=== PATIENT | male | born 1955 | race Caucasian/White ===

== ENCOUNTER 2016-09-13 14:44 | Emergency (ER) | payer MEDICARE, OTHER ==
[~2016-09-13] VITALS: Ht 167.6 cm; Wt 70.0 kg
[~2016-09-13 14:44] MED LIST: ASPI81CH PO; CALG500 PO; HYDR25TA5 PO; LISI-591 PO; LISI10TA3 PO; METF500 PO; METO50TA PO; OMEP20TA PO; PERI8.6T PO; POTA-245 PO; TAB-TAB PO; ULTR50TA5 PO; ZOCO40TA PO
[2016-09-13 14:45] VITALS: BP 114/56; PULSE 53; RESP 16; TEMP 98.1; O2SAT 98
[2016-09-13] MEDS ORDERED: TETANUS/DIPHTHERIA TOXOID ADULT 0.5 ML VIAL IM ONE (15:45)
--- NOTE | 2016-09-13 15:52 | PD ---
HPI Chief Complaint: Head Injury Time Seen by Provider: 15:40 Travel History International Travel<30 days: No Contact w/Intl Traveler<30days: No Traveled to known affect area: No History of Present Illness HPI 61-year-old male with history of autism and mental delay per chart review. He presents with a hand picker for evaluation of a mechanical fall. The patient currently is a resident at [facility]. Reportedly the patient was at [facility], a program for those with supplemental delay, today. He was sitting up from a chair when he caught his walker on something and fell forward, striking his face and head against a filing cabinet. There is no reported loss of consciousness. The patient is acting normally according to his hand picker. He is not complaining of pain anywhere but he does have hematoma and ecchymosis formation on the right side of his face and forehead. He also has an abrasion to the right knee. Last tetanus vaccination unknown. Per our chart review he is on aspirin. No other complaints. History is limited secondary to the patient's autism and inability to add much in terms of history. PFSH Past Medical History Arthritis: Yes Asthma: No Blood Disorders: Yes (this admission) Anxiety: No Depression: No Heart Rhythm Problems: No Cancer: No Cardiovascular Problems: No High Cholesterol: Yes Chemotherapy: No Chest Pain: No Congestive Heart Failure: No COPD: No Developmental Delay: Yes Diabetes: Yes Diminished Hearing: Yes Endocrine: No Genitourinary: Yes (incontience) Hypertension: Yes Immune Disorder: No Musculoskeletal: Yes Neurologic: Yes (autism,developmental) Psychiatric: No Reproductive: No Respiratory: No Immunizations Current: Yes Radiation Therapy: No Sleep Apnea: No Social History Alcohol Use: No Tobacco Use: No Substance Use: No Allergies-Medications (Allergen,Severity, Reaction): Coded Allergies: No Known Allergies (Verified , 09/13/16) Reported Meds & Prescriptions Reported Meds & Active Scripts Active Ultram (Tramadol HCl) 50 Mg Tab 50 Mg PO BID PRN Calcium Gluconate 500 Mg Tab 500 Mg PO DAILY 1 gram of salt is 93 mg elemental calcium. Aspirin 81 Mg Chew 81 Mg PO DAILY Multivitamin (Multivitamins) 1 Tab Tab 1 Tab PO DAILY Reported Zestril (Lisinopril) 20 Mg Tab 20 Mg PO DAILY Klor-Con M20 (Potassium Chloride Microencaps) 20 Meq Tab 40 Meq PO Q12HR Hydrochlorothiazide 25 Mg Tab 25 Mg PO DAILY Metoprolol Tartrate 50 Mg Tab 50 Mg PO Q12HR Zocor (Simvastatin) 40 Mg Tab 40 Mg PO HS Kami-Colace (Sennosides-Docusate Sodium) 8.6-50 Mg Tab 1 Tab PO BID Omeprazole 20 Mg Tab 20 Mg PO DAILY Lisinopril 10 Mg Tab 10 Mg PO DAILY Glucophage (Metformin HCl) 500 Mg Tab 500 Mg PO BIDPC With meals Review of Systems ROS Limitations: Poor Historian Physical Exam Exam Limitations: Poor Historian Narrative GENERAL: Well-developed well-nourished male in no acute distress who responds to commands normally. He is alert and oriented. He denies any pain. SKIN: Warm and dry. There is ecchymosis, superficial abrasions and hematoma formation over the right maxilla and right forehead. There is a small abrasion to the anterior knee. HEAD: Skin as noted above Normocephalic. EYES: Pupils equal and round. No scleral icterus. No injection or drainage. ENT: No nasal bleeding or discharge. Mucous membranes pink and moist. NECK: Trachea midline. No JVD. CARDIOVASCULAR: Regular rate and rhythm. No murmur appreciated. RESPIRATORY: No accessory muscle use. Clear to auscultation. Breath sounds equal bilaterally. GASTROINTESTINAL: Abdomen soft, non-tender, nondistended. Hepatic and splenic margins not palpable. MUSCULOSKELETAL: No obvious deformities. There is no tenderness to palpation along the cervical thoracic or lumbar midline spine. No tenderness to palpation to the hips, legs. The patient maintains full spontaneous range of motion of the neck, upper and lower extremities with no apparent discomfort. NEUROLOGICAL: Awake and alert. No obvious cranial nerve deficits. Motor grossly within normal limits. Data Data Last Documented VS Vital Signs Date Time Temp Pulse Resp B/P Pulse Ox O2 Delivery O2 Flow Rate FiO2 09/13/16 17:10 60 18 125/68 96 09/13/16 14:[address] Brain W/O Iv Contrast(Rout) (09/13/16 ) Ct Facial Bones W/O Iv Cont (09/13/16 ) Ice/Cold Pack (09/13/16 15:42) Tetanus/Diphtheria Tox Adult (Tetanus/Di (09/13/16 15:45) MDM Medical Decision Making Medical Screen Exam Complete: Yes Emergency Medical Condition: Yes Medical Record Reviewed: Yes Differential Diagnosis Hematoma, abrasion, contusion, fracture, intracranial hemorrhage Narrative Course 61-year-old male presents after mechanical fall with facial and forehead hematoma and abrasion as well as a small abrasion to the right knee. He appears well. He has no other apparent injuries or apparent discomfort. Tetanus status will be updated. He will be given an ice pack. CT of the brain and facial bones has been ordered. CT imaging is negative. The patient was reassured. He is stable for discharge in the care of his hand picker. Diagnosis Primary Impression: Facial hematoma Qualified Code: S00.83XA - Facial hematoma, initial encounter Additional Impression: Multiple abrasions Additional Instructions: Ice pack several times a day 10-15 minutes at a time. Keep the wounds clean with soap and water and apply antibiotic cream daily. Return for any emergent medical conditions Med/Other Pt SpecificInfo: No Change to Meds Disposition: 01 DISCHARGE HOME Condition: Stable Chris Cordova Sep 13, 2016 15:52
--- NOTE | 2016-09-13 16:58 | RADRPT ---
EXAM DATE/TIME: 09/13/2016 16:22 [facility] COMPARISON: CT BRAIN W/O CONTRAST, January 07, 2015, 2:47. INDICATIONS : Fell, contusion. RADIATION DOSE: 15.27 CTDIvol (mGy) MEDICAL HISTORY : Hypertension. SURGICAL HISTORY : None. ENCOUNTER: Initial ACUITY: 1 day PAIN SCALE: 5/10 LOCATION: cranial TECHNIQUE: Multiple contiguous axial images were obtained of the head. Using automated exposure control and adj ustment of the mA and/or kV according to patient size, radiation dose was kept as low as reasonably a chievable to obtain optimal diagnostic quality images. FINDINGS: CEREBRUM: The ventricles are normal for age. No evidence of midline shift, mass lesion, hemorrhage or acute in farction. No extra-axial fluid collections are seen. POSTERIOR FOSSA: The cerebellum and brainstem are intact. The 4th ventricle is midline. The cerebellopontine angle i s unremarkable. EXTRACRANIAL: The visualized portion of the orbits is intact. SKULL: The calvaria is intact. No evidence of skull fracture. CONCLUSION: Negative exam. No acute intracranial process, trauma or fracture. Perez Lyles MD on September 13, 2016 at 16:56 Board Certified Radiologist. This report was verified electronically.
--- NOTE | 2016-09-13 17:04 | RADRPT ---
EXAM DATE/TIME: 09/13/2016 16:22 [facility] COMPARISON: No previous studies available for comparison. INDICATIONS : Fall, facial contusion. RADIATION DOSE: 56.76 CTDIvol (mGy) MEDICAL HISTORY : Hypertension. SURGICAL HISTORY : None. ENCOUNTER: Initial ACUITY: 1 day PAIN SCORE: 3/10 LOCATION: cranial TECHNIQUE: Volumetric scanning of the facial bones was performed. Using automated exposure control and adjustme nt of the mA and/or kV according to patient size, radiation dose was kept as low as reasonably achiev able to obtain optimal diagnostic quality images. FINDINGS: ORBITS: The orbital and infraorbital osseous structures are intact. The retroconal structures have a normal configuration. No radiopaque foreign bodies are seen. NASAL BONE: The nasal bone and maxillary spine are intact ZYGOMATIC ARCHES: Symmetric without evidence of fracture. SINUSES: Minimal, isolated mucoperiosteal thickening in the medial aspect of the left sphenoid. Paranasal sinu ses are otherwise well-developed and clear. NASAL CAVITY: The nasal septum is intact and midline. The lacrimal ducts are intact. SOFT TISSUES: Small cephalhematoma over the right frontal bone. INTRACRANIAL: No intracranial air seen. CRIBIFORM PLATE: Grossly intact. CONCLUSION: 1. Small cephalhematoma over the right frontal bone without fracture. 2. Minimal mucoperiosteal thickening in the inferomedial aspect of the left maxillary antra. Perez Lyles MD on September 13, 2016 at 16:59 Board Certified Radiologist. This report was verified electronically.
[2016-09-13 17:10] VITALS: BP 125/68
[2016-09-30] MEDS ORDERED: HYDR25TA5 PO (12:58)
[2016-09-30] MEDS ORDERED: METO50TA PO (12:58)
[2016-09-30] MEDS ORDERED: CALG500 PO (12:59)
[2016-09-30] MEDS ORDERED: DESIOIN3 TOPICAL (13:04)
[2016-09-30] MEDS ORDERED: CLOT1CRE TOPICAL (13:06)
[2016-10-03] MEDS ORDERED: MULT-65 PO (17:12)
[2016-10-21] MEDS ORDERED: LORA-474 PO (08:51)
[2016-10-29] MEDS ORDERED: PERI8.6T PO (08:52)
[2016-10-31] MEDS ORDERED: WALKER/ADULT/FO1 MIS (11:23)
[2016-11-13] MEDS ORDERED: MULT-65 PO (09:51)
[2016-11-26] MEDS ORDERED: MULT-65 PO (10:27)
[2016-11-28] MEDS ORDERED: ASPI81CH PO (15:16)
== END 2016-09-13 17:51 | disposition home or self-care (01) ==
LOC: NEPA 14:44
DX: S00.83XA Contusion of other part of head, initial encounter (principal); F84.0 Autistic disorder; Y92.63 Factory as the place of occurrence of the external cause; W01.190A Fall on same level from slipping, tripping and stumbling with subsequent striking against furniture, initial encounter; Y99.0 Civilian activity done for income or pay; Y93.89 Activity, other specified; M19.90 Unspecified osteoarthritis, unspecified site; Z23 Encounter for immunization; I10 Essential (primary) hypertension; E11.9 Type 2 diabetes mellitus without complications
CPT/HCPCS: 70450; 70486; 90471; 90714